=== PATIENT | male | born 1970 | race Caucasian/White ===

== ENCOUNTER 2019-08-07 08:02 | Emergency (ER) | payer SELFPAY ==
--- NOTE | 2019-08-07 08:13 | UC ---
Abdominal Pain Male HPI - HPI Summary HPI Summary: CHIEF COMPLAINT and HPI: This is a 48-year-old male who presents with abdominal pain. This condition began approximately 36 hours ago after dinner. The pain worsened overnight and became intense yesterday. When he presents to the urgent care center. He has central lower quadrant in the area of the bladder intense lower abdominal pain that is worse with movement and sitting down. The patient denies fever. He is not eaten. He had normal bowel movements yesterday but one episode of a small amount of diarrhea this morning. He has no previous medical admissions. Is a once pack per day smoker and does not drink alcohol. The pain is described as intense, worse with movement, lower abdominal, below the umbilicus, some radiation to both sides. The pain is somewhat worse on the right side than the left. VITAL SIGNS & SaO2 REVIEWED. Within normal limits unless noted here. 135/78. NURSES NOTE REVIEWED. - History of Current Complaint Stated Complaint: ABD PAIN Time Seen by Provider: 08/07/19 08:12 - Allergies/Home Medications Allergies/Adverse Reactions: Allergies Allergy/AdvReac Type Severity Reaction Status Date / Time No Known Allergies Allergy Verified 08/07/19 08:16 Home Medications: Home Medications NK [No Home Medications Reported] 08/07/19 [History Confirmed 08/07/19] PMH/Surg Hx/FS Hx/Imm Hx - Additional Past Medical History Additional PMH: PAST MEDICAL HISTORY- no medical or surgical admissions. CHRONIC and RECURRENT HEALTH PROBLEM LIST REVIEWED. Information relevant to present complaint: patient is a smoker. VISIT HISTORY REVIEWED: noncontributory. MEDICATIONS & ALLERGIES REVIEWED.none. HYPERTENSION STATUS:not hypertensive. FAMILY HISTORY: positive for cardiovascular disease and diabetes. SOCIAL HISTORY: smoker, lives with , and [place] town. Previously Healthy: Yes Review of Systems All Other Systems Reviewed And Are Negative: Yes Constitutional: Positive: Negative ENT: Positive: Negative Respiratory: Positive: Cough - daily, Other - coughed up blood once 2 months ago and again 10 days ago. Cardiovascular: Positive: Negative Gastrointestinal: Positive: Abdominal Pain, Diarrhea - once today, Other - intense lower abdominal pain. Negative: Vomiting, Nausea Genitourinary: Positive: Other - sometimes feels pain over bladder and as if he has to urinate; but mostly pain; no dysuria Is Patient Immunocompromised?: No Physical Exam - Summary Physical Exam Summary: Appearance: The patient is well-appearing, is in no pain or distress, and is well-nourished. Eyes: Conjunctiva are clear. Pupils are equal and reactive to light and accommodation. Extra ocular muscle movement is intact. ENT: The hearing is grossly normal, the pharynx is normal, and the TMs are normal. There is no muffled or hoarse voice. No stridor. Neck: The neck is supple and there is no lymphadenopathy. Respiratory: The chest is non-tender to palpation and without crepitus. The lungs are clear, there are normal breath sounds, and there is no respiratory distress. No wheezes, rales or rhonchi. Cardiovascular: Heart sounds reveal a regular rate and rhythm. There are no clicks, rubs or murmurs. There are no carotid bruits or thrills. Circulation is grossly intact. Abdomen: The abdomen is tender. There is no organomegaly. Bowel sounds are present and within normal limits. Point tenderness at McBurneys point. No CVA tenderness. Rebound tenderness right lower quadrant. Musculoskeletal: Strength is intact. The patient moves all extremities. Neurological: The patient is alert. Motor and sensory are examination grossly intact. Speech is normal. Psychological: The patient displays age appropriate behavior, and is conversant. GCS=15. Skin: Negative for rashes. Triage Information Reviewed: Yes Abd Pain Male Course/Dx - Course Course Of Treatment: This is a 48-year-old male who presents with abdominal pain. This condition began approximately 36 hours ago after dinner. The pain worsened overnight and became intense yesterday. When he presents to the urgent care center. He has central lower quadrant in the area of the bladder intense lower abdominal pain that is worse with movement and sitting down. The patient denies fever. He is not eaten. He had normal bowel movements yesterday but one episode of a small amount of diarrhea this morning. He has no previous medical admissions. Is a once pack per day smoker and does not drink alcohol. The pain is described as intense, worse with movement, lower abdominal, below the umbilicus, some radiation to both sides. The pain is somewhat worse on the right side than the left. physical exam shows significant abdominal tenderness, particularly in the lower quadrants. The right lower quadrant is more tender than the left. There is no CVA tenderness. Testicle exam is normal. My diagnosis is abdominal pain of unclear etiology. Possible appendicitis. . Patient wants to go to the emergency department closer to his home. He will do that immediately. - Differential Dx/Clinical Impression Differential Diagnosis/HQI/PQRI: Appendicitis, Diverticulitis, Ischemic Bowel, Urinary Tract Infection Provider Diagnosis: Abdominal pain Discharge ED - Sign-Out/Discharge Documenting (check all that apply): Patient Departure All imaging exams completed and their final reports reviewed: No Studies - Discharge Plan Condition: Stable Disposition: HOME-RECOMMEND TO ED Patient Education Materials: Abdominal Pain (ED) Referrals: No Primary Care Phys,NOPCP [Primary Care Provider] - Additional Instructions: WE DISCUSSED: PLEASE SEEK CARE AT THE EMERGENCY DEPARTMENT NOW for your ABDOMINAL PAIN. YOU NEED FURTHER EVALUATION TO MAKE SURE YOU DON'T NEED TREATMENT FOR APPENDICITIS OR ANOTHER CONDITION. Your blood pressure reading today was 135/78, indicating HYPERTENSION. Follow- up with your primary care provider within 4 weeks for blood pressure check and appropriate recommendations and treatment, as needed. - Billing Disposition and Condition Condition: STABLE Disposition: Home-Recommend to ED
== END 2019-08-07 08:47 | disposition home health service (06) ==
LOC: UCEAST 08:02
DX: R10.84 Generalized abdominal pain (principal); F17.210 Nicotine dependence, cigarettes, uncomplicated; R19.7 Diarrhea, unspecified; R05 Cough
CPT/HCPCS: 99202; G0463